=== PATIENT | female | born 1980 | race Caucasian/White ===

== ENCOUNTER 2021-05-09 00:35 | Emergency (ER) | payer BC ==
[2021-05-09 01:19] LABS: HEMOGLOBIN 15.5 gm/dl (12.3-15.3); RED BLOOD COUNT 5.13 M/UL (4.00-5.10); WHITE BLOOD COUNT 9.5 K/UL (4.5-11.0)
[2021-05-09 01:38] LABS: BUN/CREATININE RATIO 24 (0-10)
[2021-05-09] MEDS ORDERED: FLORASTOR250 MG PO (03:49)
[2021-05-09] MEDS ORDERED: ZOFRAN ODT 4 MG4 MG PO (03:49)
[2021-05-09] MEDS ORDERED: BENTYL 20MG TAB20 MG PO (03:49)
[2021-05-09] MEDS ORDERED: K-TAB ER10 MEQ PO (03:50)
[2021-05-09 04:16] LABS: ADENOVIRUS F 40/41 Not Detected (Negative); ASTROVIRUS Not Detected (Negative); CAMPYLOBACTER Not Detected (Negative); CLOSTRIDIUM DIFFICILE TOX A/B Not Detected (Negative); CRYPTOSPORIDIUM Not Detected (Negative); E.COLI 0157 Not Detected (Negative); ENTAMOEBA HISTOLYTICA Not Detected (Negative); ENTEROAGGREGATIVE E.COLI (EAEC Not Detected (Negative); ENTEROPATHOGENIC E.COLI (EPEC) Not Detected (Negative); ENTEROTOXIGENIC E.COLI (ETEC) Not Detected (Negative); GIARDIA LAMBLIA Not Detected (Negative); NOROVIRUS GI/GII Not Detected (Negative); PLESIOMONAS SHIGELLOIDES Not Detected (Negative); ROTOVIRUS A Not Detected (Negative); SALMONELLA Not Detected (Negative); SHIG/ENTEROINVAS.ECOLI (EIEC) Not Detected (Negative); SHIGA-LIK TOX.PRO.E.COLI (STEC Not Detected (Negative); VIBRIO Not Detected (Negative); VIBRIO CHOLERAE Not Detected (Negative); YERSINIA ENTEROCOLITICA Not Detected (Negative)
[2021-05-09 11:54] LABS: SAPOVIRUS DETECTED (Negative)
== END 2021-05-09 04:35 | disposition home or self-care (01) ==
LOC: ER1 00:35
PROVIDERS: Emergency Medicine; Physician Assistant
DX: R10.11 Right upper quadrant pain (principal); R10.12 Left upper quadrant pain; E87.6 Hypokalemia; R11.2 Nausea with vomiting, unspecified; Z90.49 Acquired absence of other specified parts of digestive tract; Z20.822 Contact with and (suspected) exposure to COVID-19; R19.7 Diarrhea, unspecified
CPT/HCPCS: 0240U; 80053; 81001; 82272; 83690; 84703; 85025; 87045; 87046; 87507; 89055; 96374; 96375; 96376; 99284; J1885; J2405; J3480; J7030